=== PATIENT | female | born 1970 | race Caucasian/White ===

== ENCOUNTER → 2020-04-18 | Outpatient (CLI) | payer OTHER ==
[2020-04-18 08:08] VITALS: BP 172/82; PULSE 93; RESP 18; TEMP 98.2
--- NOTE | 2020-04-18 08:35 | P.PAINCN ---
History of Present Illness - Reason for Consult Consult date: 04/18/20 - History of Present Illness This is 49 years old female with a chronic history of severe low back pain, this started more than 5 years ago she had lumbar laminectomy done in 2015, she did fairly well until October 2019 when she started having severe low back pain, the pain is generalized and low back area, with radiation to the lower extremities bilaterally more prominent on the right side, she had some numbness and tingling sensation, she feels some weakness in her right lower extremity secondary to the pain, she is able to ambulate on her own she denies any motor or sensory deficit she denies any fever or night sweats she denies any change in the bowel movement or urination, she is currently on Neurontin 600 mg 3 times a day [place] 5/325 when necessary every 8 hours, and Motrin 800 mg 3 times a day when necessary, she denies any side effect of the medication and she reported the current medication prescribed by her primary care, and the current medication is not getting enough pain relief Past Medical History Past Medical History: Asthma, Fibromyalgia, GERD/Reflux, Hypertension, Thyroid Disorder Additional Past Medical History / Comment(s): "kidney injury" History of Any Multi-Drug Resistant Organisms: None Reported Past Surgical History: Back Surgery, Section, Cholecystectomy, Tubal Ligation Additional Past Surgical History / Comment(s): laminectomy L3-S1/carpal tunnel rt wrist Past Anesthesia/Blood Transfusion Reactions: No Reported Reaction Past Psychological History: Anxiety Smoking Status: Current every day smoker Past Drug Use History: Marijuana Medications and Allergies Home Medications Medication Instructions Recorded Confirmed Type Atorvastatin [Lipitor] 20 mg PO DAILY 04/18/20 04/18/20 History Gabapentin 600 mg PO TID 04/18/20 04/18/20 History HYDROcodone/APAP 5-325MG [[place] 5 - 325 mg PO Q8HR PRN 04/18/20 04/18/20 History 5-325] Ibuprofen [Motrin] 800 mg PO TID PRN 04/18/20 04/18/20 History Levothyroxine Sodium 25 mcg PO DAILY 04/18/20 04/18/20 History amLODIPine [Norvasc] 5 mg PO DAILY 04/18/20 04/18/20 History Allergies Allergy/AdvReac Type Severity Reaction Status Date / Time mineral oil Allergy Rash/Hives Verified 04/18/20 08:10 Penicillins Allergy Rash/Hives Verified 04/18/20 08:10 Physical Exam Vitals: Vital Signs Temp Pulse Resp BP Pulse Ox 04/18/20 08:03 98.2 F 93 18 172/82 98 Intake and Output 04/17/20 04/18/20 04/18/20 22:59 06:59 14:59 Other: Weight 90.718 kg Physical Examinations : -Constitutiona : Cooperative , not in acute distress . -HEENT : nech : supple , no Lymphadenopathy , normal thyroid size . : eyes : no ptosis , no icterus, no photophobia . - neurologic : Cranial nerve II to XII intact , no focal neurological deffecit . -psychatric : alert , oriented X 3 , appropriate affect , intact judgment and insight . -Lymphatic : no Lymphadenopathy . - musculoskeltal : Lumber spine moter stegnth lower extremities ,thigh and legs 4/5 Right side , 5/5 Left side deep tendon reflexes : normal Knee Jerk , normal ankle Jerk lumber facet Loading Test =positive Right , positive Left Range of motion of the lumbar spine Flexion 60 degrees, extension 10 degrees strait leg raising test = positive at 45 degree on the right side and is negative on the left side Fabere test= positive Right , and positive LT . Sever tenderness over the Sacroiliac joint on the Right . Gaenslen test= positive right . Seated flexion test= positive right . Results Comments: MRI of the lumbar spine L4 5 and L5-S1 laminectomy, L3 4 disc desiccation at C4 L4 5 and L5-S1 facet degeneration, and right neuro foraminal narrowing Assessment and Plan Plan: Assessment and plan=1-lumbar spondylosis with lumbar facet arthropathy without myelopathy. 2-postlaminectomy pain syndrome lumbar area. 3-lumbar foraminal stenosis. 4-right sacroiliitis. 5-right trochanteric bursitis. She'll be good candidate to have diagnostic medial branch block lumbar area at L3, L4, L5 bilaterally x2 and possible RFA ( to denervates the facet joint at L4 5 and L5-S1 ) And also she could benefit from right sacroiliac joint steroid injection. Procedure risk and benefits discussed with the patient she agreed with the preceding. Patient should continue to use her current medication, [place], Neurontin, Motrin, as prescribed by her primary care Time with Patient: Greater than 30 PQRS Measure Charge Sheet Measure #130: Documentation of Current Meds in Medical Chart: Patient's medications documented in chart Measure #226: Tobacco Use: Screen & Cessation Intervention: Pt screened for tobacco use AND intervention given Measure #111: Pneumonia Vaccination: Pneumococcal vaccine NOT administered or previously given Measure #47: Advance Care Plan: Advance care planning discussed & documented, pt chose/unable to give Measure #412: Opioid Treatment Agreement: No documentation of signed opioid treatment agreement Measure #408: Opioid Therapy Follow-up Evaluation: Patient had NO f/u eval minimum every 3 months during opioid therapy Measure #317: Preventitive Care & Scrn High Bld Press & F/U: Pre-hypertensive or hypertensive BP documented, pt will f/u with PCP Measure #128: Body Mass Index (BMI) Screening & Follow-up: BMI documented ABOVE normal parameters - f/u documented Measure #131: Pain Assessment & Follow-up: Pain positive & plan documented, Follow-up scheduled Measure #431: Unhealthy Alcohol Use Preventative Care & Scrn: Patient not identified as an unhealthy alcohol user PQRS Narrative: Blood Pressure 172/82 Pain Intensity [Bilateral 7 Lower Back] Scale Used Numeric (1 - 10) Hx Alcohol Use (MH) No: social Home Medications: Ambulatory Orders Atorvastatin [Lipitor] 20 mg PO DAILY 04/18/20 Gabapentin 600 mg PO TID 04/18/20 HYDROcodone/APAP 5-325MG [[place] 5-325] 5 - 325 mg PO Q8HR PRN 04/18/20 Ibuprofen [Motrin] 800 mg PO TID PRN 04/18/20 Levothyroxine Sodium 25 mcg PO DAILY 04/18/20 amLODIPine [Norvasc] 5 mg PO DAILY 04/18/20
== END | disposition home or self-care (01) ==
LOC: PNWHC3 07:53
PROVIDERS: ATTEND Specialist
DX: G89.29 Other chronic pain (principal); M48.061 Spinal stenosis, lumbar region without neurogenic claudication; M47.816 Spondylosis without myelopathy or radiculopathy, lumbar region; M96.1 Postlaminectomy syndrome, not elsewhere classified; M46.1 Sacroiliitis, not elsewhere classified; M70.61 Trochanteric bursitis, right hip; Z79.899 Other long term (current) drug therapy; Z88.0 Allergy status to penicillin; Z91.018 Allergy to other foods
CPT/HCPCS: 99201

== ENCOUNTER → 2020-05-27 | Day surgery (SDC) | payer OTHER ==
[2020-05-26 10:28] VITALS: BMI 36.6
[~2020-05-27] MED LIST: IV FLUID CONTINUATION 1,000 ML IV ONE; LACTATED RINGERS 1,000 ML IV SCH; MIDAZOLAM 2 MG/2 ML VIAL ONE; PROPOFOL 10 MG/ML 20 ML VIAL IV ONE; ROPIVACAINE 5MG/ML 20ML VIAL ONE; TRIAMCINOLONE ACETONIDE 40 MG/ML 1 ML VIAL ONE
[2020-05-27 12:51] VITALS: TEMP 99.5
[2020-05-27 14:18] VITALS: RESP 18
--- NOTE | 2020-05-27 14:18 | P.PCN ---
Date of Procedure: 05/27/20 Procedure(s) Performed: PREOPERATIVE DIAGNOSIS : 1- Lumbar spondylosis with Facet Arthropathy without myelopathy . 2- postlaminectomy pain syndrome lumbar area. 3- lumbar foraminal stenosis.. 4-right sacroiliitis POSTOPERATIVE DIAGNOSIS: Same as preop diagnosis. PROCEDURE: 1-Diagnostic bilateral L3 , L4 , and L5 medial branch block under fluoroscopy guidance(fluoroscopy images available in the radiology Department ) ( To target the facet joint between L4-5 , and L5-S1 ). 2-right sacroiliac joint steroid injections under fluoroscopy guidance. ANESTHESIA:, Monitored anesthesia care provided by anesthesia department. EBL: Minimal COMPLICATION: None PROCEDURE INDICATION: Chronic low back pain secondary to Facet arthropathy unresponsive to conservative treatment. PROCEDURE DESCRIPTION: the patient was seen and identified in the preop holding area , risks and benefits and possible complications of the procedure and alternative were discussed with the patient, and the patient agreed to proceed with the procedure and signed the consent and vital signs monitored during the procedure and fluoroscopy was used to maximize the benefit and accuracy of the needle placement, and sedation was given to decrease patient anxiety, patient was taken to the procedure room and placed in prone position vital signs monitored in the back prepped with chlorhexidine X3 then under strict sterile technique using a right oblique fluoroscopy ,the junction of the transverse process and the superior articulating process of the right L3 , L4 , and L5 vertebra which corresponding to the fluoroscopy image of the eye of the Everett dog on the block side for the medial branches and subsequently , after local infiltration of skin and subcu tissuies with Ropivacaine 0.5 % one mL at each level ,then 22-gauge 5 inches long Quincke-type needles , 3 needle was used , each one of them placed at the junction of the base of the transverse process and the superior articular process at the appropriate level, and the needle was advanced until the periosteum contacted, needle placement confirmed with AP oblique and lateral view and after appropriate needle placement confirmed, and after negative aspiration for heme and CSF and there was no paresthesia 1-1/2 mL of Ropivacaine 0.5% , then half mL injected at each level after negative aspiration the needle subsequently removed and the same procedure repeated for the left side at left side at L3 , L4 and L5 levels. At the end of the procedure and the needles removed . Then after that the right sacroiliac joint injection done under sterile technique , a 22-gauge Quincke Needle advanced slowly under fluoroscopy and placed in the inferior border of the right sacroiliac joint , this was confirmed with the fluoroscopy then after negative aspiration ropivacaine 0.5% 3 mL and 40 mg of Depo-Medrol mixed together and injected after negative aspiration , then after that the needle removed and a bandage applied after the skin was cleaned the cleaning solution patient taken to recovery room in stable condition and monitors in the recovery room for 20-30 minutes and di scharged home in stable condition after discharge criteria met and patient will follow up with the pain clinic in 2-4 weeks
--- NOTE | 2020-05-27 14:21 | FL ---
Fluoroscopy INDICATION: Pain FINDINGS: Fluoroscopy time: 33 seconds. Images obtained: 5. IMPRESSIONS: 1. Documentation of fluoroscopy.
[2020-05-27 14:41] VITALS: BP 141/78; PULSE 62
--- NOTE | 2020-05-31 09:43 | CDI ---
Date: 05.31.2020 CDS/Delinquent Account Clerk Name: Kate Gallardo Phone: If any questions, call Fanny Andrade Forensic Accountant at [phone] Patient Name: Emi Reyes Admit Date 05.27.20 Discharge Date: 05.27.20 ATTENTION: The [facility] Coding Staff appreciate your assistance in clarifying documentation. Please respond to the clarification below the line at the bottom and electronically sign. The [facility] Coding staff will review the response and follow-up if needed. Please note: Queries are made part of the Legal Health Record. If you have any questions, please contact the Forensic Accountant. Dear Dr. Lin In order to code to the greatest specificity and for the greatest reimbursement I need the following information: On the pain procedure record, it has been marked mod sedation, but there are no times listed and versed and fentanyl is not documented. Please clarify whether mod sed was used Thank you for your kind consideration. MTDD
== END ==
LOC: ORPAIN 12:15
PROVIDERS: ATTEND Specialist
DX: G89.29 Other chronic pain (principal); M47.816 Spondylosis without myelopathy or radiculopathy, lumbar region; M96.1 Postlaminectomy syndrome, not elsewhere classified; M48.061 Spinal stenosis, lumbar region without neurogenic claudication; M46.1 Sacroiliitis, not elsewhere classified; I10 Essential (primary) hypertension; E78.5 Hyperlipidemia, unspecified; J45.909 Unspecified asthma, uncomplicated; F17.200 Nicotine dependence, unspecified, uncomplicated; E07.9 Disorder of thyroid, unspecified; Z88.0 Allergy status to penicillin; Z91.09 Other allergy status, other than to drugs and biological substances; Z98.51 Tubal ligation status; Z79.899 Other long term (current) drug therapy
CPT/HCPCS: 81025; 64493; 64494; J2250; J3301; J2704; J2795; G0260; 27096; 99152

== ENCOUNTER → 2020-06-24 | Day surgery (SDC) | payer OTHER ==
[~2020-06-24] MED LIST changes: -IV FLUID CONTINUATION 1,000 ML IV ONE; -MIDAZOLAM 2 MG/2 ML VIAL ONE; -PROPOFOL 10 MG/ML 20 ML VIAL IV ONE; -ROPIVACAINE 5MG/ML 20ML VIAL ONE; -TRIAMCINOLONE ACETONIDE 40 MG/ML 1 ML VIAL ONE
[2020-06-24 07:52] VITALS: BP 188/96; PULSE 85; RESP 16; TEMP 98.1
--- NOTE | 2020-06-24 08:28 | P.PN ---
Progress Note - Text Progress Note Date: 06/24/20 The patient was scheduled today for lumbar bilateral medial branch block and right sacroiliac joint steroid injection however she had the same procedure last time and states that it did not help her pain at all. He also she came with pain radiating down the right leg to the right foot with numbness and tingling which is clearly a case of lumbar radiculopathy on the right side. The patient had lumbar laminectomy previously. I think the patient may benefit from getting transforaminal or caudal epidural steroid injection in the future to help her with lumbar radiculopathy. The transforaminal levels will be at the L4 5 and L5-S1 on the right side. The patient states also that her leg pain is more intense than her lower back pain which goes with her diagnosis of lumbar radiculopathy. She also has a diagnosis of postlaminectomy pain syndrome. Given the clinical picture for right lumbar radiculopathy and the fact that the last lumbar diagnostic medial branch block did not help the patient's pain I will cancel her procedure today .I will schedule her for transforaminal epidural steroid injection at the L4 5 and L5-S1 level on the right side under fluoroscopic guidance. We could not do this procedure today because her insurance company did not approve it but we will try to get an approval as soon as possible.
== END ==
LOC: ORPAIN 07:20
PROVIDERS: ATTEND Anesthesiology
DX: Z53.9 Procedure and treatment not carried out, unspecified reason (principal)

== ENCOUNTER 2020-08-02 06:20 | Day surgery (SDC) | payer OTHER ==
[2020-07-26 16:23] VITALS: BMI 36.6
[2020-08-02 06:50] VITALS: TEMP 98
[2020-08-02] MEDS ORDERED: IOPAMIDOL M200 10 ML VIAL ONE (07:25)
[2020-08-02] MEDS ORDERED: MIDAZOLAM 2 MG/2 ML VIAL ONE (07:25)
[2020-08-02] MEDS ORDERED: fentaNYL (PF) 50 MCG/ML 2 ML AMP ONE (07:25)
[2020-08-02] MEDS ORDERED: methylPREDNISolone ACETATE 40 MG/ML 1 ML VIAL ONE (07:25)
--- NOTE | 2020-08-02 07:42 | P.PCN ---
Date of Procedure: 08/02/20 Procedure(s) Performed: PREOPERATIVE DIAGNOSIS: 1-Lumbar radiculopathy . 2-failed back surgery syndrome lumbar area POSTOPERATIVE DIAGNOSIS: Same as preoperative diagnoses. PROCEDURE 1. Transforaminal epidural steroid injection under fluoroscopic guidance at right L4-5 level, and right L5-S1 level. (Fluoroscopy images stored on file in the radiology Department ) 2. Lumbar epidurogram . ANESTHESIA: Local with 1% lidocaine 3 ml , moderate sedation with intravenous Versed 2 mg and fentanyle 50 micrograms. EBL: Minimal PROCEDURE INDICATION: The patient with low back pain and radiculopathy symptoms unresponsive to conservative treatment. PROCEDURE DESCRIPTION / TECHNIQUE: The patient was seen and identified in the preoperative area. Risks, benefits, complications, and alternatives were discussed with the patient. The patient agreed to proceed with the procedure and signed the consent. IV was started, and vital signs were stable. Patient was taken to the OR and time out was completed. The patient was placed in the prone position on procedure table and a pillow was placed under the abdomen to reduce lumbar lordosis. The lumbosacral area was prepped and draped in the usual sterile fashion. Critical pause was taken. Vital signs were closely monitored during the procedure. Conscious sedation was used during the procedure to decrease patient s anxiety. Using oblique fluoroscopy, the chin of the ``Everett dog at L4-5 level was identified, and the skin and deeper tissues just below was localized with 1% lidocaine. Subsequently, a 22-gauge 5-inch spinal needle was advanced under a tunneled view fluoroscopic guidance just underneath the chin of the ``Everett dog at the right L4-5 Under lateral fluoroscopy, the needle was then advanced to the posterior border of the interforaminal space. After negative aspiration of CSF and blood and with no paresthesias, 1 mL Isovue 200 contrast dye was injected excellent epidurogram and outlining of the nerve root Subsequently, 3 mL of block solution containing 40 mg Depo-Medrol and 2 mL of 0.9% normal saline PF was injected. Needle was removed and the same procedure was repeated at the right L5-S1 level (s). At the end of the procedure, skin was cleansed, and bandages were applied. COMPLICATIONS:none DISPOSITION / PLANS: The patient was placed in a supine position and transferred to the recovery area in a stable condition for observation. There was no evid ence of lower extremity motor or sensory deficit after the procedure. Patient was discharged from the recovery room after meeting discharge criteria. Home discharge instructions were given to the patient by the staff. The patient was reexamined prior to discharge.
[2020-08-02] MEDS ORDERED: IV FLUID CONTINUATION 700 ML IV ONE (07:50)
[2020-08-02 07:52] VITALS: RESP 16
[2020-08-02 08:12] VITALS: BP 142/81; PULSE 65
--- NOTE | 2020-08-02 11:06 | FL ---
EXAMINATION TYPE: FL guided pain mgmt statistic DATE OF EXAM: 08/02/2020 FLUOROSCOPY Fluoroscopy time of 9 seconds was used during right transforaminal steroid injection L4-S1. 2 image/ s document/s the procedure.
== END 2020-08-02 08:18 | disposition home or self-care (01) ==
LOC: ORPAIN 06:20
PROVIDERS: ATTEND Specialist
DX: M54.16 Radiculopathy, lumbar region (principal); M96.1 Postlaminectomy syndrome, not elsewhere classified; Z88.0 Allergy status to penicillin; Z91.09 Other allergy status, other than to drugs and biological substances
CPT/HCPCS: 81025; 64483; 64484; J2250; J1030; J3010; Q9966